=== PATIENT | female | born 1945 ===

== ENCOUNTER 2021-08-24 11:08 | Outpatient (CLI) | payer OTHER ==
[~2021-08-24 11:08] MED LIST: LYRICA50 MG PO; MEDROL4 MG PO
== END 2021-08-28 15:11 | disposition home or self-care (01) ==
LOC: WOUND MED 11:08
PROVIDERS: ATTEND Specialist
DX: L97.822 Non-pressure chronic ulcer of other part of left lower leg with fat layer exposed (principal); L97.812 Non-pressure chronic ulcer of other part of right lower leg with fat layer exposed; B95.62 Methicillin resistant Staphylococcus aureus infection as the cause of diseases classified elsewhere; R60.0 Localized edema
CPT/HCPCS: 11042; G0463; A4554; A4930; A6196; A6216; A6219

== ENCOUNTER 2021-08-31 08:53 | Outpatient (CLI) | payer OTHER | END 2021-09-04 12:23 | disposition home or self-care (01) | LOC: WOUND MED 08:53 | PROVIDERS: ATTEND Specialist | DX: L97.822 Non-pressure chronic ulcer of other part of left lower leg with fat layer exposed (principal); L97.812 Non-pressure chronic ulcer of other part of right lower leg with fat layer exposed; B95.62 Methicillin resistant Staphylococcus aureus infection as the cause of diseases classified elsewhere; R60.0 Localized edema | CPT/HCPCS: 11042; A4554; A4930; A6216 ==